=== PATIENT | female | born 1995 | race Hispanic/Latino ===

== ENCOUNTER 2019-07-25 19:32 | Emergency (ER) | payer OTHER ==
--- NOTE | 2019-07-25 20:00 | ER ---
Nurse's Notes [facility] Name: Alfreda Dominique Age: 24 yrs Sex: Female : 1995 Arrival Date: 07/25/2019 Time: 19:34 Bed 20 Private MD: Diagnosis: Acute tonsillitis;Fever, unspecified Presentation: 07/24 19:43 Chief complaint: Patient states: Sore throat since Tuesday. Fever up to 101 at home. ll1 Coronavirus screen: Proceed with normal triage. Patient denies a cough. Patient denies shortness of breath or difficulty breathing. Patient reports a measured and/or subjective temperature greater than 100.4F. Patient denies travel on a cruise ship or to a country the [facility] currently lists as an affected area. Patient denies contact with known and/or suspected case of COVID-19. Ebola Screen: Patient denies travel to an Ebola-affected area in the 21 days before illness onset. Initial Sepsis Screen: Does the patient meet any 2 criteria? HR > 90 bpm. Risk Assessment: Do you want to hurt yourself or someone else? Patient reports no desire to harm self or others. Onset of symptoms was July 23, 2019. 19:43 Method Of Arrival: Ambulatory ll1 19:43 Acuity: MOOK 4 ll1 Historical: - Allergies: 19:45 No Known Allergies; ll1 - PMHx: 19:45 febrile seizures (as a child); Asthma; ll1 - PSHx: 19:45 ; ll1 - Immunization history:: Flu vaccine is not up to date. - Social history:: Smoking status: Patient denies any tobacco usage or history of. Patient/guardian denies using alcohol, street drugs, tobacco products. Screenin:17 Abuse screen: Denies threats or abuse. Nutritional screening: No deficits noted. Tuberculosis screening: No symptoms or risk factors identified. Fall Risk None identified. Assessment: 19:55 General: Appears in no apparent distress. Pain:. Neuro: Level of Consciousness is ah awake, alert, Oriented to person, place, time. Cardiovascular: Heart tones S1 S2 present Capillary refill < 3 seconds Patient's skin is warm and dry. Respiratory: Airway is patent Respiratory effort is even, unlabored, Breath sounds are clear bilaterally. GI: Bowel sounds present X 4 quads. : No signs and/or symptoms were reported regarding the genitourinary system. EENT: Throat is reddened. Derm: No signs and/or symptoms reported regarding the dermatologic system. Musculoskeletal: No signs and/or symptoms reported regarding the musculoskeletal system. 20:25 Reassessment: Discharge instructions given at this time. No adverse reactions noted ah from injection. Vital Signs: 19:43 BP 139 / 84; Pulse 94; Resp 18; Temp 99.4; Pulse Ox 95% ; Pain 7/10; ll1 20:46 Temp 99.1(O); ah ED Course: 19:34 Patient arrived in ED. cl3 19:35 Bentley Naylor MD is Attending Physician. [facility] 19:44 Triage completed. ll1 19:45 Arm band placed on Patient placed in an exam room, on a stretcher. ll1 19:49 Iveth Araujo, RN is Primary Nurse. 20:18 No provider procedures requiring assistance completed. Patient did not have IV access ah during this emergency room visit. 20:20 Patient has correct armband on for positive identification. Administered Medications: 20:05 Drug: Bicillin L-A 1.2 million units Route: IM; Site: right ventrogluteal; 20:21 Follow up: Response: No adverse reaction 20:05 Drug: Tylenol 650 mg Route: PO; 20:21 Follow up: Response: No adverse reaction Outcome: 19:59 Discharge ordered by . [facility] 20:18 Discharged to home ambulatory. 20:18 Condition: good 20:18 Discharge instructions given to patient, Instructed on discharge instructions, Demonstrated understanding of instructions, follow-up care. 20:46 Patient left the ED. Signatures: Bentley Naylor MD MD cha Lewis, Charde cl3 Iveth Araujo RN RN Ale Alvarado RN RN [facility]
--- NOTE | 2019-07-25 20:00 | EDPHYS ---
Physician Documentation [facility] Name: Alfreda Dominique Age: 24 yrs Sex: Female : 1995 Arrival Date: 07/25/2019 Time: 19:34 Bed 20 Private MD: ED Physician Bentley Naylor HPI: 07/24 19:49 This 24 yrs old Female presents to ER via Ambulatory with complaints of Sore ld Throat. 19:49 The patient presents with sore throat. The patient describes throat pain as raw, ld scratchy. Onset: The symptoms/episode began/occurred 2 day(s) ago. Severity of symptoms: At their worst the symptoms were mild, moderate, in the emergency department the symptoms are unchanged. Modifying factors: The symptoms are alleviated by nothing, the symptoms are aggravated by fluids, foods, swallowing, Patient's oral intake status: good. Associated signs and symptoms: Pertinent positives: cough, fever, Sore throat. The patient has experienced similar episodes in the past. 19:51 The patient reports fever, that was measured at 101 degrees Fahrenheit. Modifying ld factors: The patient has had contact with sick friend, strep exposed. Associated signs and symptoms: Pertinent positives: cough, sore throat, swelling. Severity of symptoms: At their worst the symptoms were mild moderate in the emergency department the symptoms are unchanged. Historical: - Allergies: 19:45 No Known Allergies; ll1 - PMHx: 19:45 febrile seizures (as a child); Asthma; ll1 - PSHx: 19:45 ; ll1 - Immunization history:: Flu vaccine is not up to date. - Social history:: Smoking status: Patient denies any tobacco usage or history of. Patient/guardian denies using alcohol, street drugs, tobacco products. ROS: 19:52 Eyes: Negative for injury, pain, redness, and discharge, Neck: Negative for injury, ld pain, and swelling, Cardiovascular: Negative for chest pain, palpitations, and edema, Abdomen/GI: Negative for abdominal pain, nausea, vomiting, diarrhea, and constipation, Back: Negative for injury and pain, : Negative for injury, bleeding, discharge, and swelling, MS/Extremity: Negative for injury and deformity, Skin: Negative for injury, rash, and discoloration, Neuro: Negative for headache, weakness, numbness, tingling, and seizure, Psych: Negative for depression, anxiety, suicide ideation, homicidal ideation, and hallucinations, Allergy/Immunology: Negative for hives, rash, and allergies, Endocrine: Negative for neck swelling, polydipsia, polyuria, polyphagia, and marked weight changes, Hematologic/Lymphatic: Negative for swollen nodes, abnormal bleeding, and unusual bruising. 19:52 Constitutional: Positive for chills, fever. 19:52 ENT: Positive for sore throat. 19:52 Respiratory: Positive for cough, with no reported sputum, coughs only because of tickle in throat. Exam: 19:52 Constitutional: This is a well developed, well nourished patient who is awake, alert, ld and in no acute distress. Head/Face: Normocephalic, atraumatic. Eyes: Pupils equal round and reactive to light, extra-ocular motions intact. Lids and lashes normal. Conjunctiva and sclera are non-icteric and not injected. Cornea within normal limits. Periorbital areas with no swelling, redness, or edema. Neck: Trachea midline, no thyromegaly or masses palpated, and no cervical lymphadenopathy. Supple, full range of motion without nuchal rigidity, or vertebral point tenderness. No Meningismus. Chest/axilla: Normal chest wall appearance and motion. Nontender with no deformity. No lesions are appreciated. Cardiovascular: Regular rate and rhythm with a normal S1 and S2. No gallops, murmurs, or rubs. Normal PMI, no JVD. No pulse deficits. Respiratory: Lungs have equal breath sounds bilaterally, clear to auscultation and percussion. No rales, rhonchi or wheezes noted. No increased work of breathing, no retractions or nasal flaring. Abdomen/GI: Soft, non-tender, with normal bowel sounds. No distension or tympany. No guarding or rebound. No evidence of tenderness throughout. Back: No spinal tenderness. No costovertebral tenderness. Full range of motion. Skin: Warm, dry with normal turgor. Normal color with no rashes, no lesions, and no evidence of cellulitis. MS/ Extremity: Pulses equal, no cyanosis. Neurovascular intact. Full, normal range of motion. Neuro: Awake and alert, GCS 15, oriented to person, place, time, and situation. Cranial nerves II-XII grossly intact. Motor strength 5/5 in all extremities. Sensory grossly intact. Cerebellar exam normal. Normal gait. Psych: Awake, alert, with orientation to person, place and time. Behavior, mood, and affect are within normal limits. 19:52 ENT: Posterior pharynx: Airway: normal, no evidence of obstruction, Tonsils: enlarged on the right, enlarged on the left, bilaterally enlarged, with erythema, with exudate, Uvula: normal, swelling, that is mild, erythema, that is mild, exudate, that is mild, peritonsillar mass, is not appreciated, pooling of secretions, is not appreciated. 19:57 Neck: External neck: is normal, no acute changes, swelling, that is mild, of the right ld submandibular area and left submandibular area. 19:59 Abdomen/GI: Inspection: abdomen appears normal, Bowel sounds: normal, Palpation: [facility] abdomen is soft and non-tender, in all quadrants, Liver: no appreciated palpable abnormalities, Hernia: not appreciated, no spleenomegaly. Vital Signs: 19:43 BP 139 / 84; Pulse 94; Resp 18; Temp 99.4; Pulse Ox 95% ; Pain 7/10; ll1 20:46 Temp 99.1(O); ah MDM: 19:38 Patient medically screened. [facility] 19:55 Data reviewed: vital signs, nurses notes. [facility] 19:55 Differential diagnosis: laryngitis, peritonsillar abscess pharyngitis, retropharyngeal ld abcess tonsillitis, uvulitis. ED course: exposure to strep, now fever and chills, tonsils swollen, has 5 year old child. 20:00 ED course: pt refused testing, would rather be treated with bicillin and not have to ld take pills. 07/24 19:58 Order name: PO challenge; Complete Time: 20:39 [facility] Administered Medications: 20:05 Drug: Bicillin L-A 1.2 million units Route: IM; Site: right ventrogluteal; 20:21 Follow up: Response: No adverse reaction 20:05 Drug: Tylenol 650 mg Route: PO; 20:21 Follow up: Response: No adverse reaction Disposition: 07/25/19 19:59 Discharged to Home. Impression: Acute tonsillitis, Fever, unspecified. - Condition is Stable. - Discharge Instructions: Fever, Adult, Tonsillitis, Tonsillitis, [id number]. - Work release form, Medication Reconciliation Form, Thank You Letter, Antibiotic Education, Prescription Opioid Use form. - Follow up: Private Physician; When: 2 - 3 days; Reason: Recheck today's complaints, Continuance of care, Re-evaluation by your physician. - Problem is new. - Symptoms have improved. Signatures: Bentley Naylor MD MD cha Harris, Amy RN RN Ale Espinoza RN RN ll1 Corrections: (The following items were deleted from the chart) 20:46 19:59 07/25/2019 19:59 Discharged to Home. Impression: Acute tonsillitis; Fever, ah unspecified. Condition is Stable. Forms are Medication Reconciliation Form, Thank You Letter, Antibiotic Education, Prescription Opioid Use. Follow up: Private Physician; When: 2 - 3 days; Reason: Recheck today's complaints, Continuance of care, Re-evaluation by your physician. Problem is new. Symptoms have improved. ld
[2019-07-25] MEDS ORDERED: PEN G BENZ LA 1.2MU/2ML SYRINGE IM ONE (20:07)
[2019-07-25] MEDS ORDERED: ACETAMINOPHEN 325 MG TABLET ONE (20:07)
[2019-07-25 20:51] VITALS: BP 139/84; O2SAT 95
[2019-07-25 20:52] VITALS: TEMP 99.1
== END 2019-07-25 20:46 | disposition home or self-care (01) ==
LOC: ER 19:32
DX: J03.90 Acute tonsillitis, unspecified (principal)
CPT/HCPCS: 96372; 99283; J0561